=== PATIENT | male | born 1965 | race Caucasian/White ===

== ENCOUNTER 2018-06-06 12:17 | Emergency (ER) | payer SELFPAY ==
[2018-06-06 12:27] VITALS: BP 147/89
[2018-06-06] MEDS ORDERED: NORCO 5/325 PO ONE (12:54)
--- NOTE | 2018-06-06 12:54 | Emergency Department Report ---
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 Complaint: foot injury -: Sudden Type of Injury: blunt Place: work Severity: mild Improves With: nothing Worsens With: movement - Related Data Allergies Allergy/AdvReac Type Severity Reaction Status Date / Time No Known Allergies Allergy Unverified 06/06/18 12:27 ED Review of Systems ROS: Stated complaint: RT FOOT INJURY/POSS BROKE Other details as noted in HPI Comment: All other systems reviewed and negative Constitutional: denies: chills Eyes: denies: eye pain ENT: denies: ear pain Respiratory: denies: cough Cardiovascular: denies: dyspnea on exertion Endocrine: denies: flushing Gastrointestinal: denies: nausea Genitourinary: denies: urgency Musculoskeletal: as per HPI, other (FOOT PAIN). denies: back pain Skin: denies: rash Neurological: denies: headache Psychiatric: denies: anxiety Hematological/Lymphatic: denies: easy bleeding ED Past Medical Hx - Past Medical History Previous Medical History?: No - Surgical History Past Surgical History?: Yes Additional Surgical History: right foot surgery - Social History Smoking Status: Current Some Day Smoker Substance Use Type: Alcohol ED Physical Exam - General Limitations: No Limitations General appearance: alert - Head Head exam: Present: atraumatic - Eye Eye exam: Present: normal appearance Pupils: Present: normal accommodation - ENT ENT exam: Present: normal exam - Neck Neck exam: Present: normal inspection - Respiratory Respiratory exam: Present: normal lung sounds bilaterally - Cardiovascular Cardiovascular Exam: Present: regular rate - GI/Abdominal GI/Abdominal exam: Present: soft - Rectal Rectal exam: Present: deferred - Expanded Lower Extremity Exam Right Hip exam: Present: normal inspection Upper Leg exam: Present: normal inspection Knee exam: Present: normal inspection Lower Leg exam: Present: normal inspection Ankle exam: Present: full ROM (WITH PAIN), tenderness, swelling, erythema. Absent: abrasion, laceration, ecchymosis, deformity, crepidus, dislocation Foot/Toe exam: Present: normal inspection Neuro vascular tendon exam: Present: no vascular compromise - Back Exam Back exam: Present: normal inspection - Neurological Exam Neurological exam: Present: alert, CN II-XII intact - Psychiatric Psychiatric exam: Present: normal affect, normal mood - Skin Skin exam: Present: warm, dry, intact ED Course Vital Signs 06/06/18 12:24 Temperature 98.0 F Pulse Rate 81 Respiratory 18 Rate Blood Pressure 147/89 O2 Sat by Pulse 97 Oximetry ED Lower Extremity MDM - Radiology Data Radiology results: report reviewed, image reviewed - Medical Decision Making XRAY NOTED NEUROVASC INTACT MEDICATED FOR PAIN - Differential Diagnosis RO FX Critical care attestation.: If time is entered above; I have spent that time in minutes in the direct care of this critically ill patient, excluding procedure time. ED Disposition Clinical Impression: Contusion, foot Disposition: TO HOME OR SELFCARE Is pt being admited?: No Does the pt Need Aspirin: No Condition: Stable Instructions: Foot Contusion (ED) Additional Instructions: ICE REST ELEVATED MEDS ORDERED TODAY MOTRIN OR TYLENOL FOR MILD PAIN FOLLOW UP INSTRUCTED REFERRAL BELOW Referrals: PRIMARY MD PAVAN [Primary Care Provider] - 3-5 Days WALE PAIGE MD [Staff Physician] - 3-5 Days Time of Disposition: 13:53
--- NOTE | 2018-06-06 13:50 | XRay Report ---
RIGHT FOOT, 3 views: History: Pain. No evidence for fracture, dislocation or erosive joint pathology. 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 Tiny plantar spur. There is moderate distal soft tissue swelling. IMPRESSION: Soft tissue swelling. Mild degenerative changes. No acute injury is identified on x-ray.
== END 2018-06-06 15:12 | disposition home or self-care (01) ==
LOC: ED 12:17
DX: S90.31XA Contusion of right foot, initial encounter (principal); F17.200 Nicotine dependence, unspecified, uncomplicated; W20.8XXA Other cause of strike by thrown, projected or falling object, initial encounter; Y93.89 Activity, other specified; Y92.69 Other specified industrial and construction area as the place of occurrence of the external cause; Y99.8 Other external cause status